=== PATIENT | female | born 1970 | race African-American/Black ===

== ENCOUNTER → 2020-03-29 | Outpatient (CLI) | payer OTHER ==
[~2020-03-29] MED LIST: COLACE100 MG PO; IBUPROFEN200 MG PO; IRON; MOTRIN200 MG PO; TYLENOL # 31 EA PO; VITAMIN C100 MG; [UNRECOGNIZED DRUG - OTHER] PO
[2020-03-29 12:53] LABS: BASOPHILS % 0.5 % (0.0-1.0); EOSINOPHILS # (AUTO) 0.1 (0.0-0.4); EOSINOPHILS % 1.1 % (0.0-6.0); HEMATOCRIT 29.9 % (34.2-44.1); HEMOGLOBIN 8.8 g/dL (12.0-16.0); LYMPHOCYTES # (AUTO) 1.4 (1.0-3.2); LYMPHOCYTES % 25.5 % (18.0-39.1); MEAN CORPUSCULAR HEMOGLOBIN 26.2 pg (28-32); MEAN CORPUSCULAR HGB CONC 29.4 g/dL (31-35); MONOCYTES # (AUTO) 0.5 (0.2-0.8); MONOCYTES % 9.9 % (4.4-11.3); NEUTROPHILS # (AUTO) 3.4 (2.1-6.9); NEUTROPHILS % 62.5 % (38.7-80.0); PLATELET COUNT 310 x10e3/uL (140-360); RED BLOOD COUNT 3.36 x10e6/uL (3.6-5.1); RED CELL DISTRIBUTION WIDTH 18.8 % (11.7-14.4)
[2020-03-29 13:09] LABS: CLARITY,URINE CLEAR (CLEAR); COLOR,URINE YELLOW (YELLOW)
[2020-03-29 13:10] LABS: KETONES,URINE NEGATIVE (NEGATIVE); LEUKOCYTE ESTERASE ,URINE NEGATIVE (NEGATIVE); NITRITE,URINE NEGATIVE (NEGATIVE); PROTEIN,URINE DIPSTICK NEGATIVE (NEGATIVE); URINE UROBILINOGEN 0.2 mg/dL (0.2 - 1)
[2020-03-29 14:02] LABS: HIV 1&2 AB SCREEN NON-REACTIVE (NONREACTIVE)
== END ==
LOC: DX 05:47 → EDBD 04-03 07:30 → EDSTATUS 04-03 07:30
PROVIDERS: ATTEND Specialist
DX: Z01.812 Encounter for preprocedural laboratory examination (principal); Z20.828 Contact with and (suspected) exposure to other viral communicable diseases; Z01.818 Encounter for other preprocedural examination; N92.0 Excessive and frequent menstruation with regular cycle; N93.8 Other specified abnormal uterine and vaginal bleeding; D25.9 Leiomyoma of uterus, unspecified
CPT/HCPCS: 36415; 71046; 81003; 84702; 85025; 87390; 93005; G0433; G0435; U0002

== ENCOUNTER 2020-05-01 06:07 | Observation (INO) | payer OTHER ==
[~2020-05-01] VITALS: Ht 172.7 cm; Wt 104.3 kg
[~2020-05-01 06:07] MED LIST changes: -COLACE100 MG PO; -MOTRIN200 MG PO; -TYLENOL # 31 EA PO
[2020-05-01] MEDS ORDERED: BUPIVACAINE LIPOSOME/PF 266 MG/20 ML IJ ONE (08:30)
[2020-05-01] MEDS ORDERED: IBUPROFEN 800MG/ 200ML 200 ML IV ONE (09:34)
[2020-05-01] MEDS ORDERED: DEXTROSE 5%/0.225% SOD CHL 1,000 ML IV SCH (10:45)
[2020-05-01] MEDS ORDERED: BISACODYL 5 MG TAB EC PO PRN (10:45)
[2020-05-01] MEDS ORDERED: DIPHENHYDRAMINE HCL 25 MG CAP PO PRN ×2 (10:45→11:00)
[2020-05-01] MEDS ORDERED: NALOXONE HCL INJ 0.4 MG/ML AMP IV PRN (11:00)
[2020-05-01] MEDS ORDERED: KETOROLAC TROMETHAMINE 30 MG/ML VIAL IV PRN (11:00)
[2020-05-01] MEDS ORDERED: ONDANSETRON HCL INJ 2MG/ML 2ML 2 MG/ML VIAL IV PRN (11:00)
[2020-05-01] MEDS ORDERED: DIPHENHYDRAMINE HCL INJ 50 MG/ML VIAL IM PRN (11:00)
[2020-05-01] MEDS: HYDROMORPHONE 0.2MG/ML-SOD CHL 30ML PCA SYRINGE IV PRN (11:05)
[2020-05-01] MEDS ORDERED: ONDANSETRON HCL INJ 2MG/ML 2ML 2 MG/ML VIAL ONE ×2 (12:00→13:12)
[2020-05-01] MEDS ORDERED: NEOSTIGMINE 1 MG/ML 10ML VIAL ONE (12:00)
[2020-05-01] MEDS ORDERED: LIDOCAINE HCL 2% LOCAL INJ 5 ML SDV VIAL INJ ONE (12:00)
[2020-05-01] MEDS ORDERED: GLYCOPYRROLATE INJ 0.2 MG/ML VIAL ONE (12:00)
[2020-05-01] MEDS ORDERED: ROCURONIUM BROMIDE 10 MG/ML 5ML VIAL IV ONE (12:00)
[2020-05-01] MEDS ORDERED: METOCLOPRAMIDE HCL 10 MG/2ML VIAL ONE ×2 (12:00→13:12)
[2020-05-01] MEDS ORDERED: PROPOFOL IV EMULSION 10 MG/ML 20 ML VIAL ONE (12:00)
[2020-05-01] MEDS ORDERED: SEVOFLURANE INHAL SOLN 250 ML PEN BTL ONE (12:00)
[2020-05-01] MEDS ORDERED: DEXAMETHASONE SOD PHOS INJ 4 MG/ML VIAL ONE (12:00)
[2020-05-01] MEDS ORDERED: CEFOXITIN SOD 1 GM VIAL ONE (12:00)
[2020-05-01] MEDS ORDERED: MIDAZOLAM HCL 2 MG/2 ML VIAL ONE (12:37)
[2020-05-01] MEDS ORDERED: FENTANYL CITRATE/PF 100MCG/2 ML INJ ONE (12:37)
[2020-05-01] MEDS ORDERED: MORPHINE SULFATE INJ 10 MG/ML ONE (12:37)
[2020-05-01] MEDS ORDERED: KETAMINE HCL INJ 50 MG/ML 10 ML VIAL ONE (12:37)
[2020-05-01 13:32] VITALS: BP 130/64
[2020-05-01 13:36] VITALS: BP 130/64
[2020-05-01] MEDS: CEFOXITIN 2GM/ D5W 50ML 50 ML IV SCH ×2 (15:18→20:44)
[2020-05-01] MEDS: DEXTROSE 5%/LACTATED RINGERS 1,000 ML IV SCH ×2 (15:18→19:15)
[2020-05-01 17:28] VITALS: BP 124/83
[2020-05-01 20:00] VITALS: BP 109/62
[2020-05-01 20:46] VITALS: BP 109/62
[2020-05-02] VITALS (7 sets, daily range): BP systolic 108–140; BP diastolic 62–90
[2020-05-02] MEDS: DEXTROSE 5%/LACTATED RINGERS 1,000 ML IV SCH (01:40)
[2020-05-02] MEDS: CEFOXITIN 2GM/ D5W 50ML 50 ML IV SCH ×2 (02:30→11:27)
[2020-05-02] MEDS: HYDROMORPHONE 0.2MG/ML-SOD CHL 30ML PCA SYRINGE IV PRN (03:55)
[2020-05-02 05:53] LABS: BASOPHILS % 0.2 % (0.0-1.0); HEMATOCRIT 37.5 % (34.2-44.1); HEMOGLOBIN 11.8 g/dL (12.0-16.0); LYMPHOCYTES # (AUTO) 0.6 (1.0-3.2); LYMPHOCYTES % 5.4 % (18.0-39.1); MEAN CORPUSCULAR HEMOGLOBIN 28.9 pg (28-32); MEAN CORPUSCULAR HGB CONC 31.5 g/dL (31-35); MEAN CORPUSCULAR VOLUME 91.9 fL (81-99); MONOCYTES # (AUTO) 0.5 (0.2-0.8); NEUTROPHILS # (AUTO) 9.5 (2.1-6.9); PLATELET COUNT 280 x10e3/uL (140-360); RED BLOOD COUNT 4.08 x10e6/uL (3.6-5.1); RED CELL DISTRIBUTION WIDTH 16.4 % (11.7-14.4)
[2020-05-02 06:35] LABS: ALANINE AMINOTRANSFERASE 22 IU/L (0-55); ALBUMIN 3.2 g/dL (3.5-5.0); ALKALINE PHOSPHATASE 64 IU/L (40-150); BLOOD UREA NITROGEN 9 mg/dL (7-26); BUN/CREATININE RATIO 9 (6-25); CALCIUM 8.5 mg/dL (8.4-10.2); CARBON DIOXIDE 26 mmol/L (22-29); CHLORIDE 105 mmol/L (98-107); CREATININE, SERUM 1.04 mg/dL (0.57-1.11); EST GLOMERULAR FILTRATION RATE > 60 ML/MIN (60-); GLUCOSE 137 mg/dL (74-118); SODIUM 137 mmol/L (136-145)
[2020-05-02] MEDS: DOCUSATE SODIUM 100 MG CAP PO SCH ×3 (11:30→18:45)
[2020-05-02] MEDS: HYDROCODONE/APAP 5MG-325MG TAB PO PRN ×2 (14:05→18:45)
[2020-05-02] MEDS: IBUPROFEN 400 MG TAB PO PRN (16:42)
[2020-05-03] VITALS: BP 129/73
[2020-05-03] MEDS: IBUPROFEN 400 MG TAB PO PRN ×2 (00:40→14:44)
[2020-05-03 04:00] VITALS: BP 140/82
[2020-05-03] MEDS: HYDROCODONE/APAP 5MG-325MG TAB PO PRN ×2 (05:01→12:19)
[2020-05-03 07:42] VITALS: BP 140/82
[2020-05-03 08:10] VITALS: BP 138/84
[2020-05-03] MEDS: DOCUSATE SODIUM 100 MG CAP PO SCH (10:18)
[2020-05-03 11:53] VITALS: BP 138/94
[2020-05-03] MEDS ORDERED: TYLENOL # 31 EA PO (14:33)
[2020-05-03] MEDS ORDERED: MOTRIN200 MG PO (14:33)
[2020-05-03] MEDS ORDERED: COLACE100 MG PO (14:34)
[2020-05-03] MEDS ORDERED: BISACODYL 10 MG SUPP PR ONE (14:35)
== END 2020-05-03 14:55 | disposition home or self-care (01) ==
LOC: OR 06:07 → PACU V 10:44 → MED/SURG 13:59
PROVIDERS: ADMIT Specialist; ATTEND Specialist
DX: D25.9 Leiomyoma of uterus, unspecified (principal); Z20.828 Contact with and (suspected) exposure to other viral communicable diseases
CPT/HCPCS: 36415 ×2; 58150; 80053; 81025; 84702; 85025; 86850; 86900; 88307; C9290; G0378 ×3; J0694 ×2; J1100; J1885; J2001; J2250; J2270; J2405 ×2; J2704; J2710; J2765; J3010; J7121; U0002